=== PATIENT | female | born 1970 | race Caucasian/White ===

== ENCOUNTER 2020-02-12 04:17 | Emergency (ER) | payer OTHER ==
[~2020-02-12] VITALS: Ht 167.6 cm; Wt 77.1 kg
[2020-02-12 04:25] VITALS: Ht 167.6 cm; Wt 77.1 kg
[2020-02-12 06:10] VITALS: BP 142/85
== END 2020-02-12 06:10 | disposition home or self-care (01) ==
LOC: ED 04:17
DX: M54.2 Cervicalgia (principal); M54.5 Low back pain; G89.29 Other chronic pain; I10 Essential (primary) hypertension; E11.9 Type 2 diabetes mellitus without complications; E78.00 Pure hypercholesterolemia, unspecified; G43.909 Migraine, unspecified, not intractable, without status migrainosus; Z88.0 Allergy status to penicillin
CPT/HCPCS: J1885; Q0162